=== PATIENT | female | born 1990 | race Caucasian/White ===

== ENCOUNTER 2016-12-10 06:01 | Emergency (ER) | payer SELFPAY ==
[2016-12-10] MEDS ORDERED: Ondansetron ODT 4 MG TAB ONE (06:30)
[2016-12-10] MEDS ORDERED: Milk Of Magnesia 30 ML UDCUP ONE (06:31)
[2016-12-10] MEDS ORDERED: Lorazepam 2 MG/ML VIAL ONE (06:31)
[2016-12-10] MEDS ORDERED: Lidocaine Viscous Sol 2% 15 ml UD Cup ONE ×3 (06:32)
== END 2016-12-10 07:17 | disposition home or self-care (01) ==
LOC: NAV ERS 06:01
DX: F41.9 Anxiety disorder, unspecified (principal); K21.9 Gastro-esophageal reflux disease without esophagitis; I47.1 Supraventricular tachycardia; F17.210 Nicotine dependence, cigarettes, uncomplicated; Z98.51 Tubal ligation status
CPT/HCPCS: 96372; J2060; Q0162